=== PATIENT | female | born 1955 | race Hispanic/Latino ===

== ENCOUNTER 2018-07-21 09:57 | Emergency (ER) | payer MEDICARE | END 2018-07-21 10:47 | disposition home or self-care (01) | LOC: EDH 09:57 | DX: S81.812D Laceration without foreign body, left lower leg, subsequent encounter (principal); I10 Essential (primary) hypertension; F32.9 Major depressive disorder, single episode, unspecified; X58.XXXD Exposure to other specified factors, subsequent encounter ==

== ENCOUNTER 2019-10-03 17:02 | Emergency (ER) | payer MEDICARE ==
[2019-10-03] MEDS ORDERED: BENZONATATE 100 MG CAPSULE PO ONE (17:43)
[2019-10-03 17:50] LABS: CREATININE 0.7 mg/dL (0.5-1.5); POTASSIUM 3.7 mmol/L (3.5-5.1)
[2019-10-03 17:54] LABS: ALBUMIN 3.1 g/dL (3.5-5.0); BILIRUBIN,TOTAL 0.2 mg/dL (0.2-1.0); TOTAL PROTEIN, SERUM 7.1 g/dL (6.0-8.3)
[2019-10-03] MEDS ORDERED: IPRATROPIUM/ALBUTEROL SULFATE 3 ML SOLUTION IH ONE (18:01)
[2019-10-03 18:16] LABS: ALCOHOL, BLOOD < 3 mg/dL (0-10)
[2019-10-03 18:20] LABS: ACETAMINOPHEN < 1 mcg/mL (10-30); SALICYLATE < 2.8 mg/dL (2.8-20.0)
[2019-10-03] MEDS ORDERED: OSELTAMIVIR PHOSPHATE 75 MG CAP ONE (19:09)
[2019-10-03 20:01] LABS: BASOPHILS % (AUTO) 0.4 % (0.0-5.0); EOSINOPHILS % (AUTO) 0.4 % (0.0-8.0); HEMATOCRIT 32.3 % (36-48); LYMPHOCYTES % (AUTO) 7.3 % (21.0-51.0); MEAN CORPUSCULAR HGB CONC 31.9 g/dL (32.0-36.0); MONOCYTES % (AUTO) 10.1 % (3.0-13.0); NEUTROPHILS % (AUTO) 81.3 % (40.0-77.0); PLATELET COUNT (AUTO) 156 K/uL (130-400); RED BLOOD CELL COUNT(AUTO) 3.55 MIL/uL (4.00-5.50); WHITE BLOOD COUNT (AUTO) 7.9 K/uL (4.8-10.8)
[2019-10-03 20:19] LABS: B-TYPE NATRIURETIC PEPTIDE 68 pg/mL (0-100)
[2019-10-03 21:14] LABS: APPEARANCE,URINE Clear (CLEAR); BILIRUBIN,URINE Negative (NEGATIVE); COLOR,URINE Yellow (YELLOW); GLUCOSE, URINE (UA) Negative (NEGATIVE); KETONES,URINE Negative (NEGATIVE); LEUKOCYTE ESTERASE ,URINE Moderate (NEGATIVE); NITRATE,URINE Positive (NEGATIVE); OCCULT BLOOD,URINE Negative (NEGATIVE); PH,URINE 5.5 (5.0-8.0); PROTEIN,URINE Negative (NEGATIVE)
[2019-10-03 21:22] LABS: AMPHET/METH SCREEN,URINE NEGATIVE (NEGATIVE); BARBITURATE SCREEN, URINE NEGATIVE (NEGATIVE); BENZODIAZEPINES SCREEN,URINE NEGATIVE (NEGATIVE); CANNABINOID SCREEN,URINE NEGATIVE (NEGATIVE); COCAINE SCREEN,URINE NEGATIVE (NEGATIVE); OPIATE SCREEN,URINE NEGATIVE (NEGATIVE); PHENCYCLIDINE SCREEN,URINE NEGATIVE (NEGATIVE)
[2019-10-03] MEDS ORDERED: CEFTRIAXONE SODIUM 1 GM ONE (21:45)
[2019-10-03] MEDS ORDERED: LIDOCAINE HCL-MPF 1% 2ML VIAL ONE (21:45)
[2019-10-03 21:58] LABS: BACTERIA,URINE Many /HPF (None Seen)
[2019-10-03 21:59] LABS: RBC,URINE 0-1 /HPF (0-1)
== END 2019-10-03 22:20 | disposition home or self-care (01) ==
LOC: EDH 17:02
DX: J09.X2 Influenza due to identified novel influenza A virus with other respiratory manifestations (principal); R45.851 Suicidal ideations; F33.9 Major depressive disorder, recurrent, unspecified; N39.0 Urinary tract infection, site not specified; I10 Essential (primary) hypertension
CPT/HCPCS: 36415; 71046; 80053; 80185; 80305; 81001; 82550; 83605; 83880; 84484; 85025; 87077; 87088; 87186; 87804 ×2; 93005; 94640; 96372; 99285; G0480 ×2; G0481; J0696; J3490